=== PATIENT | male | born 1975 | race Caucasian/White ===

== ENCOUNTER → 2020-11-10 09:09 | Outpatient (BNVA) | payer BC, SELFPAY | PROVIDERS: Visit Provider Nurse Practitioner Family | DX: M25.532 Pain in left wrist (principal); M79.642 Pain in left hand; S52.502S Unspecified fracture of the lower end of left radius, sequela; S52.602S Unspecified fracture of lower end of left ulna, sequela; X58.XXXS Exposure to other specified factors, sequela | CPT/HCPCS: 73110; 73130 ==

== ENCOUNTER → 2023-07-29 16:15 | Outpatient (BNVA) | payer BC, SELFPAY | PROVIDERS: PCP Family Medicine; Visit Provider Family Medicine | DX: Z13.6 Encounter for screening for cardiovascular disorders (principal); E66.9 Obesity, unspecified | CPT/HCPCS: 80053; 80061; 84443; 85025 ==